=== PATIENT | female | born 1970 | race Caucasian/White ===

== ENCOUNTER → 2023-05-14 | Outpatient (CLI) | payer BC ==
[2023-05-14 13:25] VITALS: TEMP 96.7
[2023-05-14 15:10] LABS: CSF TUBE# TP TUBE 1; TOTAL PROTEIN,CSF 58.6 MG/DL (15-45)
[2023-05-14 15:13] LABS: CSF TUBE# GLU TUBE 1
[2023-05-14 15:32] LABS: APPEARANCE, CSF CLEAR (CLEAR); COLOR, CSF COLORLESS (COLORLESS); CSF TUBE# CELL CNT TUBE 1
[2023-05-14 16:25] VITALS: BP 145/79; O2SAT 99
== END ==
LOC: M IRPRO 12:39
PROVIDERS: ATTEND Psychiatry & Neurology Neurology
DX: G35 Multiple sclerosis (principal)